=== PATIENT | male | born 1970 | race Caucasian/White ===

== ENCOUNTER → 2017-04-20 | Outpatient (CLI) | payer BC ==
[~2017-04-20] MED LIST: PROZAC PO; SYNTHROID PO
--- NOTE | ~2017-04-20 | NM8 ---
[facility] A Service of [facility] & [facility] RADIOLOGY TEXT RESULTS PATIENT: KHADRA SANCHEZ LOCATION: [facility] : 68 UNIT #: [id number] AGE: [address]: Armen Lopez MD SEX: M ORDER DR: [id number] [facility]. [place], [place] [address] [id number] O MR#: [id number] Acc #: [id number] NAME: KHADRA SANCHEZ : 1970 SEX: M STUDY DATE/TIME: 04/20/2017 12:30 UNIT: [facility] ROOM: STUDY DESCRIPTION: NM Bone or Joint Whole Body Attending Physician: Armen Lopez M.D. Referring Physician: Armen Lopez M.D. Ordering Physician: Armen Lopez M.D. Primary Care Physician: Armen Lopez M.D. MEDICAL IMAGING REPORT This report is preliminary unless electronic signature is present EXAM Whole-body bone scan HISTORY 46-year-old male with low back pain, left hip pain for 6 months. History of degenerative disc disease. COMPARISON Lumbar spine series 03/13/2017 and left hip series, 03/13/2017. FINDINGS Whole-body and selected spot images were performed of the axial and appendicular skeleton following the intravenous administration of 28.3 mCi technetium 99m MDP. The examination demonstrates mild increased uptake within the patellofemoral compartments bilaterally, right greater than left, and may represent a developing patellofemoral arthrosis. Normal symmetric uptake within the hip joints. Mild increased uptake within the lower lumbar spine primarily at the 4-5 level in the region of the facet joints may represent underlying facet arthropathy. No focal uptake seen within the vertebral bodies. Uptake within the remainder of the axial and appendicular skeleton unremarkable. Bilateral renal activity and normal bladder activity noted. IMPRESSION 1. Mild increased uptake within the lower lumbar spine involving the L4-5 facet joints may represent underlying facet arthropathy. 2. Mild degenerative uptake within both knees primarily within the patellofemoral compartments and may represent early patellofemoral arthrosis. Dictated by.Gilbert Ruelas M.D. [facility] A Service of [facility] RADIOLOGY TEXT RESULTS PATIENT: KHADRA SANCHEZ LOCATION: [facility] : 68 UNIT #: [id number] AGE: [address]: Armen Lopez MD SEX: M ORDER DR: THIS IS AN ELECTRONICALLY VERIFIED REPORT Boris Ruelas M.D. at 04/21/2017 5:39 PM SANG/chi TD: 04/21/2017 16:49 JOB #: [id number] MEDICAL IMAGING REPORT Page 1 of 1 COPY
== END | disposition home or self-care (01) ==
LOC: CNUC 04-06 08:00
DX: M51.36 Other intervertebral disc degeneration, lumbar region (principal); R94.8 Abnormal results of function studies of other organs and systems
CPT/HCPCS: 78306; A9503